=== PATIENT | male | born 1980 | race Caucasian/White ===

== ENCOUNTER 2019-11-03 12:22 | Outpatient (CLI) | payer MEDICARE, SELFPAY ==
[2019-11-03 12:35] LABS: Basophils Percent Auto 1.2 % (0.0-1.0); Eosinophils Absolute Auto 0.48 K/mm3 (0.02-0.50); Eosinophils Percent Auto 5.7 % (1.0-6.0); Hematocrit 45.2 % (40.0-54.0); Immature Granulocyte Absolute 0.03 K/mm3 (0.00-0.00); Immature Granulocyte Percent A 0.4 % (0.0-0.0); Lymphocytes Absolute Auto 2.69 K/mm3 (1.10-4.50); Lymphocytes Percent Auto 31.8 % (18.0-42.0); Mean Corpuscular HGB Conc 35.4 g/dL (32.0-36.0); Mean Corpuscular Hemoglobin 29.5 pg (27.0-31.0); Mean Corpuscular Volume 83.4 fL (78.0-102.0); Mean Platelet Volume 8.7 fl (8.7-11.0); Monocytes Absolute Auto 0.61 K/mm3 (0.10-0.90); Monocytes Percent Auto 7.2 % (2.0-11.0); Neutrophils Absolute Auto 4.6 K/mm3 (1.7-7.2); Neutrophils Percent Auto 53.7 % (50.0-70.0); Platelet Count Result 320 K/mm3 (150-420); Red Blood Count 5.42 M/mm3 (4.70-6.10); Red Cell Distribution Width 12.4 % (11.6-14.4); White Blood Count 8.5 K/mm3 (4.8-10.8)
[2019-11-03 12:37] LABS: Add Urine Microscopic? NO; Appearance Urine Clear (Clear); Bilirubin Urine Negative (Negative); Blood Urine Negative (Negative); Color Urine Yellow (Yellow); Glucose Urine UA Negative (Negative); Ketones Urine Negative (Negative); Leukocyte Esterase Ur Negative LEU/UL (Negative); Nitrate Urine Negative (Negative); Protein Urine Negative (Negative); Specific Grav Ur 1.015 (1.010-1.020); Urobilinogen Urine 0.2 mg/dL (0.2-1.0); pH Urine 8.5 (5.0-8.0)
[2019-11-03 13:54] LABS: Alanine Aminotransferase 56 U/L (16-63); Albumin Level 4.4 g/dL (3.4-5.0); Alkaline Phosphatase 86 U/L (46-116); Anion Gap 15.3 mmol/L (7-16); Aspartate Amino Transferase 26 U/L (15-37); Bilirubin,Total 0.6 mg/dL (0.00-1.00); Blood Urea Nitrogen 11 mg/dL (7-18); Carbon Dioxide 27 mmol/L (21-32); Chloride 103 mmol/L (98-108); Cholesterol 234 mg/dL (0-200); Creatine Kinase 138 U/L (39-308); Estimated Glomerular Filt Rate > 60; Free T3 3.22 pg/mL (2.18-3.98); Free T4 Free Thyroxine 0.92 ng/dL (0.76-1.46); Glucose 84 mg/dL (70-99); HDL Direct 48 mg/dL (40-60); LDL Cholesterol Calculated 162 mg/dL (<130); Osmolality Calculated 290 mOsm/kg (285-295); Potassium 4.3 mmol/L (3.5-5.1); Sodium 141 mmol/L (136-145); Total Protein 7.4 g/dL (6.4-8.2); Triglycerides 119 mg/dL (0-150)
[2019-11-03 14:09] LABS: Calcium 9.7 mg/dL (8.5-10.1)
== END 2019-11-03 12:23 | disposition home or self-care (01) ==
PROVIDERS: PCP Internal Medicine; Visit Provider Internal Medicine
DX: E78.2 Mixed hyperlipidemia (principal); E03.9 Hypothyroidism, unspecified; I10 Essential (primary) hypertension
CPT/HCPCS: 36415; 80053; 80061; 81003; 82550; 84439; 84443; 84481; 85025

== ENCOUNTER 2023-07-03 12:40 | Outpatient (CLI) | payer MEDICARE, OTHER, SELFPAY ==
--- NOTE | ~2023-07-03 | CT_ITS ---
EXAMINATION: CT sinus wo con DATE: 07/03/2023 13:10 INDICATION: Left sided head pressure, pain. Chronic sinusitis. TECHNIQUE: Computed tomography (CT) of the paranasal sinuses was performed without contrast. Iterativ e reconstruction technique was employed. Exam dose: 308.46 mGy-cm total exam DLP. COMPARISON: None FINDINGS: Rightward deviation of the nasal septum. The nasal turbinates are unremarkable. There is mucoperiosteal thickening of both maxillary ostia and both infundibula. There is minimal mucoperiosteal thickening primarily involving the lower portion of each maxillary si nus. There is patchy opacification of ethmoid air cells bilaterally. There is soft tissue thickening of th e left frontal ethmoid junction. There is minimal mucoperiosteal thickening of the inferomedial aspec t of the right frontal sinus. Approximately 7.7 x 9.7 mm soft tissue opacity of the medial wall of the right sphenoid sinus and sli ght mucoperiosteal thickening of both sphenoid sinuses. The mastoid air cells are normally developed and aerated bilaterally. There is a left temporal bone flap secured with plates and screws. IMPRESSION: Rightward deviation of nasal septum Extensive soft tissue thickening of both ostiomeatal units Minimal to mild soft tissue thickening of multiple paranasal sinuses Reviewed, dictated and finalized at [facility]. Reviewed, dictated and finalized at [facility]
== END 2023-07-03 12:41 | disposition home or self-care (01) ==
LOC: CHSIMG 12:42
PROVIDERS: PCP Internal Medicine; Visit Provider Internal Medicine
DX: J32.9 Chronic sinusitis, unspecified (principal); J34.2 Deviated nasal septum
CPT/HCPCS: 70486